=== PATIENT | female | born 1995 | race African-American/Black ===

== ENCOUNTER 2016-11-23 15:03 | Emergency (ER) | payer OTHER ==
[~2016-11-23] VITALS: Ht 167.6 cm; Wt 129.2 kg
[~2016-11-23 15:03] MED LIST: ACET-62 PO; ALBU2.5V2 AEROSOL; ALBU8.5H INH; CLOB15CR5 TOP; DIPH25CA84 PO; DOXE10CA2 PO
[2016-11-23 15:06] VITALS: Ht 167.6 cm; Wt 129.2 kg
--- NOTE | 2016-11-23 15:17 | ERPDOC ---
Departure Disposition Decision Date: Nov 23, 2016 Disposition Decision Time: 16:54 Disposition: 01 DISCHARGED HOME, SELF-CARE Impression Impression Impression: Primary Impression: Tonsillopharyngitis Severity: Moderate Condition: Stable Seen By: Physician only Referrals: NERY DE LEON (PCP/Family) Patient Instructions: Tonsillitis (ED) Problems/Meds/Labs Reviewed?: Yes Medications reviewed and manag: Yes Departure Forms: Return to Work/School Permit Return to Work/School Date: Nov 25, 2016 Follow up care ordered?: Yes Mental Status: Alert, Oriented Scripts Tramadol HCl (Tramadol HCl) 50 Mg Tablet 1-2 TAB PO Q6H Y for PAIN, #20 TAB Prov: DEBBIE FABIAN MD 11/23/16 Amoxicillin (Amoxicillin) 500 Mg Tablet 500 MG PO TID for 10 Days, 0 Refills Prov: DEBBIE FABIAN MD 11/23/16 HPI - EENT General General Chief Complaint: Throat Pain/Injury Stated Complaint: SORE THROAT, EARACHE Time Seen by Provider: 15:17 Source: patient Exam Limitations: no limitations HPI - EENT General Initial Comments Patient is a 21-year-old female presents emergency from for evaluation of sore throat with earache. Patient sore throat started 4 days ago, earache started today patient also has some lateral swelling of her face. Patient was seen in the urgent care and was concern for retropharyngeal abscess so patient was referred to the ER for further evaluation Occurred At: home Onset/Timing: Gradual, Getting worse Duration: other (4 days) Pain/Severity Scale: Now & Worst: 2/10 Location: throat Prearrival Treatment: over the counter meds Associated Symptoms: facial pain/swelling, DENIES: drooling Allergies: Coded Allergies: latex (Unverified Allergy, Unknown, UNKNOWN, 11/23/16) Past History Patient Surgical History right ACL, [place] tooth extraction, laproscopic ovary evaluaton x 2 Past Medical History ENMT: allergies Respiratory: asthma Female: other Integumentary: eczema Psychological: anxiety, personality disorder Surgical History General: other Joint: knee Family History Family PMH: FOUND: a-fib, asthma Vaccines Hx Influenza Vaccination: No Hx Pneumococcal Vaccination: No Social History Does patient use chewing tobac: No Second Hand Exposure: No Substance Use Type: does not use Alcohol Intake: none Marital Status: Single Current Occupational Status: employed, student Occupational Hazard: No Review of Systems Constitutional Constitutional: DENIES: appetite decrease, chills, dizziness, fever, weakness Eyes Vision: DENIES: double vision, loss of visual frederick ENMT Sinuses: DENIES: congestion, rhinorrhea Mouth/Throat: painful swallowing, scratchy throat, sore throat, DENIES: change in swallowing, drooling Cardiovascular Cardiac: DENIES: chest pain Pulmonary Respiratory: DENIES: cough, dyspnea, sputum, tachypnea GI Upper Abdomen: DENIES: nausea, pain, vomiting Lower Abdomen: DENIES: constipation, diarrhea, pain General: DENIES: frequency, urgency Musculoskeletal General: DENIES: cramps, pain, weakness Integumentary Skin: DENIES: color change, itching, rash Endocrine Endocrine: DENIES: heat/cold intolerance Hematologic/Lymphatic Hematologic/Lymphatic: DENIES: anemia Physical Exam General General Nourishment: well nourished, well developed General Body Habitus: well groomed Vitals and Pain Weight: Kilograms: 129.200 Height (feet): 5 Height (inches): 6.00 Triage Pain Scale: RN VS reviewed by Provider: Yes Eyes (brief) Eyes Brief: found: EOMI ENMT (brief) ENMT Brief: FOUND: TM clear, TM good light reflex, mucosa moist, normal dentition, pharnyx erythema (patient has large erythematous left-sided tonsil not quite reaching the midline), NOT FOUND: nasal erythema, nasal exudate, nasal swelling Neck (brief) Neck: NOT FOUND: adenopathy, spasm, tenderness Respiratory (brief) Respiratory: FOUND: clear all frederick, equal bilaterally, NOT FOUND: rales, wheezes Cardiovascular (brief) Cardiac: FOUND: regular rate Differential Diagnoses Considering: Pharyngitis, Other (retropharyngeal abscess, peritonsillar abscess ) Progress Results/Orders Orders Procedure Category Date Status Time Iv Lock (Ed Only) EDM 11/23/16 Transmitted 15:20 Cbc W/Auto LAB 11/23/16 Complete Diff-Reflex Manual 15:20 Bmp - Basic Metabolic LAB 11/23/16 Complete Panel 15:20 LAB 11/23/16 Complete Qualitative, Serum 15:20 Normal Saline (Normal PHA 11/23/16 Complete Saline Iv) 15:30 Dexamethasone Inj PHA 11/23/16 Complete (Decadron) 15:30 Ct Neck W/Contrast CT 11/23/16 Resulted 15:55 Iohexol (Omnipaque) PHA 11/23/16 Complete 16:11 Normal Saline (Ns) PHA 11/23/16 Complete 16:11 Saline Flush (Iv PHA 11/23/16 Complete Flush) 16:11 Lab Results Laboratory Tests Test 11/23/16 15:30 White Blood Count 8.0T/MM3 Red Blood Count 4.26M/MM3 Hemoglobin 12.9GM/DL Hematocrit 38.4% Mean Corpuscular Volume 90.1UM3 Mean Corpuscular Hemoglobin 30.3UUG Mean Corpuscular Hemoglobin Concent 33.6GM/DL RDW Standard Deviation 42.3FL Platelet Count 272T/MM3 Mean Platelet Volume 9.1UM3 Immature Granulocyte % (Auto) 0.1% Neutrophils (%) (Auto) 64.5% Lymphocytes (%) (Auto) 26.3% Monocytes (%) (Auto) 5.5% Eosinophils (%) (Auto) 3.1% Basophils (%) (Auto) 0.5% Absolute Immature Granulocyte (auto 0.01T/MM3 Absolute Neutrophils (auto) 5.2T/MM3 Absolute Lymphocytes (auto) 2.1T/MM3 Absolute Monocytes (auto) 0.4T/MM3 Absolute Eosinophils (auto) 0.3T/MM3 Absolute Basophils (auto) 0.0T/MM3 Turbidity < 20 Sodium Level 144MEQ/L Potassium Level 4.0MEQ/L Chloride Level 108MEQ/L Carbon Dioxide Level 26MEQ/L Anion Gap 10MEQ/L Blood Urea Nitrogen 13.0MG/DL Creatinine 0.8MG/DL Glomerular Filtration Rate Calc 91 BUN/Creatinine Ratio 16RATIO Glucose Level 85MG/DL Calculated Osmolality 276MOSM/KG Calcium Level 8.8MG/DL Icterus Index < 2 Human Chorionic Gonadotropin, Qual Negative Chemistry Specimen Hemolysis < 15 Medications Current ED Medications Sodium Chloride (Normal Saline IV) 1,000 ml @ 999 mls/hr Q1H1M ONCE IV Last administered on 11/23/16 15:33; Start 11/23/16 at 15:30; Stop 11/23/16 at 16:30; Status DC Dexamethasone Sodium Phosphate (Decadron) 8 mg O ONCE IV Last administered on 11/23/16 15:34; Start 11/23/16 at 15:30; Stop 3/8/17 at 15:31; Status DC Iohexol 1 bottle 1 bottle STK-MED ONCE .ROUTE ; Start 11/23/16 at 16:11; Stop 11/23/16 at 16:12; Status DC Sodium Chloride (NS) 100 ml @ As Directed STK-MED ONCE .ROUTE ; Start 11/23/16 at 16:11; Stop 11/23/16 at 16:12; Status DC Sodium Chloride (Iv Flush) 10 ml STK-MED ONCE .ROUTE ; Start 11/23/16 at 16:11; Stop 11/23/16 at 16:12; Status DC Progress Progress Patient given dexamethasone in the emergency department, patient has no signs of retropharyngeal abscess on CT scan. We'll treat with antibiotics, follow-up with primary medical physician CT CT : CT: Other (soft tissue neck) Interpretation: Normal, Faxed Report DEBBIE FABIAN MD Nov 23, 2016 15:17
[2016-11-23] MEDS ORDERED: DEXAMETHASONE 4mg/ml - 1ml INJECTION IV ONE (15:30)
[2016-11-23] MEDS ORDERED: NORMAL SALINE 1,000 ML IV ONE (15:30)
[2016-11-23 15:35] LABS: BASOPHILS % (AUTO) 0.5 % (0-2); EOSINOPHILS # (AUTO) 0.3 T/MM3 (0-0.5); EOSINOPHILS % (AUTO) 3.1 % (0-4); HCT - HEMATOCRIT 38.4 % (36-46); HGB - HEMOGLOBIN 12.9 GM/DL (12-16); IMMATURE GRANULOCYTE # (AUTO) 0.01 T/MM3 (0.00-0.03); IMMATURE GRANULOCYTE % (AUTO) 0.1 % (0.0-0.5); LYMPHOCYTES # (AUTO) 2.1 T/MM3 (1-4.8); LYMPHOCYTES % (AUTO) 26.3 % (23-45); MEAN CORPUSCULAR HGB 30.3 UUG (26-34); MEAN CORPUSCULAR HGB CONC(MCHC 33.6 GM/DL (31-37); MEAN CORPUSCULAR VOLUME 90.1 UM3 (80-100); MEAN PLATELET VOLUME 9.1 UM3 (9.4-12.4); MONOCYTES # (AUTO) 0.4 T/MM3 (0-0.8); MONOCYTES % (AUTO) 5.5 % (0-9.0); NEUTROPHILS #(AUTO)-ABSOLUTE 5.2 T/MM3 (1.8-7.7); NEUTROPHILS % (AUTO) 64.5 % (33-66); RED BLOOD COUNT 4.26 M/MM3 (4.00-5.20)
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
--- OUTSIDE RECORDS SUMMARY | 2016-11-23 15:37 | XMS REPORT | Continuity of Care Document ---
Author Author [facility] Organization [facility] Address Unknown Phone Unavailable Care Team Providers Care Hot Blast Worker Name Role Phone HALEYNERY Primary Care Physician [phone] Insurance Providers Payer Name Policy Number Subscriber Name Relationship Vibha [employer] [id number] Mook Taylor 18 Self Problems Medical Problems Problem Onset Date Status Nausea & vomiting Unknown Active Sinusitis Unknown Active Nausea & vomiting Unknown Active Medications Medication Dose Route Sig Days/Qty Instructions Order Date Discontinued Date Status Cefdinir 1 Cap PO TWICE A DAY 10 Days 05/11/14 Active Social History Social History Problem Response Recorded Date/Time Smoking Status Unknown if ever smoked 05/11/2014 7:57pm Hospital Discharge Instructions No hospital discharge instructions. Plan of Care No plan of care. Functional Status Query Response Date Recorded Physical Hygiene Self May 11, 2014 7:57pm Disabilities None May 11, 2014 7:57pm Devices Used None May 11, 2014 7:57pm Dressing Self May 11, 2014 7:57pm Ambulation Self May 11, 2014 7:57pm Diet Self May 11, 2014 7:57pm Mental Status Alert Oriented May 11, 2014 8:35pm Disabilities None May 11, 2014 7:57pm Devices Used None May 11, 2014 7:57pm Physical Hygiene Self May 11, 2014 7:57pm Dressing Self May 11, 2014 7:57pm Ambulation Self May 11, 2014 7:57pm Diet Self May 11, 2014 7:57pm Allergies, Adverse Reactions, Alerts Allergen Type Severity Reaction Status Last Updated No Known Allergies Active 05/11/14 Immunizations No immunization records. Vital Signs Acute Vital Signs Vital Response Date/Time Temperature (Fahrenheit) 97.2 deg F (96.8 - 99.1) Temperature (Calculated Celsius) 36.58771 degrees C (36.0 - 37.3) Pulse Rate (adult) 96 bpm (60 - 100) Respiratory Rate 20 breaths/min (10 - 20) O2 Sat by Pulse Oximetry 98 % (90 - 100) Blood Pressure 130/64 mm Hg Height 5 ft 6 in Weight 264 lb Body Mass Index 42.0 kg/m^2 Results Test Source Date Result Interp. Ref. Range Comments Alanine Aminotransferase (ALT/SGPT) May 11, 2014 8:17pm 32 U/L N 9- 52 Albumin May 11, 2014 8:17pm 3.8 G/DL N 3.5-5.0 Albumin/Globulin Ratio May 11, 2014 8:17pm 1.4 RATIO N 1.1-2.2 Alkaline Phosphatase May 11, 2014 8:17pm 77 U/L N 70-260 Anion Gap May 11, 2014 8:17pm 10 MEQ/L N 5-15 Aspartate Amino Transf (AST/SGOT) May 11, 2014 8:17pm 25 U/L N 14-36 BUN/Creatinine Ratio May 11, 2014 8:17pm 17 RATIO N 6-26 Basophils # (Auto) May 11, 2014 8:17pm 0.0 T/MM3 N 0-0.2 Basophils (%) (Auto) May 11, 2014 8:17pm 0.5 % N 0-2 Blood Urea Nitrogen May 11, 2014 8:17pm 15.0 MG/DL N 7-17 Calcium Level May 11, 2014 8:17pm 9.0 MG/DL N 8.4-10.2 Calculated Osmolality May 11, 2014 8:17pm 275 MOSM/KG N 261-280 Carbon Dioxide Level May 11, 2014 8:17pm 27 MEQ/L N 22-30 Chloride Level May 11, 2014 8:17pm 106 MEQ/L N 98-107 Creatinine May 11, 2014 8:17pm 0.9 MG/DL N 0.7-1.2 Eosinophils # (Auto) May 11, 2014 8:17pm 0.4 T/MM3 N 0-0.5 Eosinophils (%) (Auto) May 11, 2014 8:17pm 5.4 % H 0-4 Globulin May 11, 2014 8:17pm 2.8 G/DL N 2.4-3.6 Glucose Level May 11, 2014 8:17pm 86 MG/DL N 65-110 Hematocrit May 11, 2014 8:17pm 35.9 % L 36-46 Hemoglobin May 11, 2014 8:17pm 11.8 GM/DL L 12-16 Lymphocytes # (Auto) May 11, 2014 8:17pm 1.6 T/MM3 N 1-4.8 Lymphocytes (%) (Auto) May 11, 2014 8:17pm 23.4 % N 23-45 Mean Corpuscular Hemoglobin May 11, 2014 8:17pm 30.2 UUG N 26-34 Mean Corpuscular Hemoglobin Concent May 11, 2014 8:17pm 32.9 GM/DL N 31-37 Mean Corpuscular Volume May 11, 2014 8:17pm 91.8 UM3 N 80-100 Mean Platelet Volume May 11, 2014 8:17pm 9.0 UM3 L 9.4-12.4 Monocytes # (Auto) May 11, 2014 8:17pm 0.6 T/MM3 N 0-0.8 Monocytes (%) (Auto) May 11, 2014 8:17pm 9.2 % H 0-9.0 Neutrophils # (Auto) May 11, 2014 8:17pm 4.1 T/MM3 N 1.8-7.7 Neutrophils (%) (Auto) May 11, 2014 8:17pm 61.3 % N 33-66 Platelet Count May 11, 2014 8:17pm 315 T/MM3 N 130-400 Potassium Level May 11, 2014 8:17pm 3.9 MEQ/L N 3.6-5 RDW Standard Deviation May 11, 2014 8:17pm 44.2 FL N 36.9-50.2 Red Blood Count May 11, 2014 8:17pm 3.91 M/MM3 L 4.00-5.20 Sodium Level May 11, 2014 8:17pm 143 MEQ/L N 134-144 Total Bilirubin May 11, 2014 8:17pm 0.20 MG/DL N 0.20-1.30 Total Protein May 11, 2014 8:17pm 6.6 G/DL N 6.3-8.2 White Blood Count May 11, 2014 8:17pm 6.7 T/MM3 N 4.5-11.0 Chemistry Specimen Hemolysis May 11, 2014 8:17pm < 15 0-25 0-25: No Hemolysis.26-70: Slight Hemolysis - can falsely elevate K and Urine Protein. 71-285: Moderate Hemolysis - can falsely elevate K, Troponin I, CA 19-9, PTH, CSF GLucose, and Urine Protein, and can falsely decrease Phenytoin. 286-999: Gross Hemolysis - can falsely elevate K, Troponin I, CA 19-9, PTH, CSF Glucose, and Urine Protine, and can falsely decrease Phenytoin. Recommend specimen recollection. Turbidity May 11, 2014 8:17pm < 20 0-20 Glomerular Filtration Rate Calc May 11, 2014 8:17pm 82 - Immature Granulocyte # (Auto) May 11, 2014 8:17pm 0.01 T/MM3 N 0.00- 0.03 Immature Granulocyte % (Auto) May 11, 2014 8:17pm 0.2 % N 0.0-0.5 Icterus Index May 11, 2014 8:17pm < 2 0-7 Procedures No known history of procedures. Encounters Encounter Location Date/Time Departed Emergency Room [facility] 05/11/14 6:46pm Recent Diagnosis
--- OUTSIDE RECORDS SUMMARY | 2016-11-23 15:38 | XMS REPORT | Continuity of Care Document ---
Author Author [facility] Organization [facility] Address Unknown Phone Unavailable Care Team Providers Care Photography Editor Name Role Phone NERY DE LEON Primary Care Physician [phone] Insurance Providers Payer Name Policy Number Subscriber Name Relationship Vibha [employer] [id number] Mook Taylor 18 Self Advance Directives Directive Response Recorded Date/Time Advanced Directives Type None 07/21/14 9:18pm Problems Medical Problems Problem Onset Date Status Nausea & vomiting Unknown Active Sinusitis Unknown Active Nausea & vomiting Unknown Active RUQ abdominal pain Unknown Active Nausea and vomiting Unknown Active RUQ abdominal pain Unknown Active Medications Medication Dose Route Sig Days/Qty Instructions Order Date Discontinued Date Status Albuterol Sulfate 2.5 Mg AEROSOL THREE TIMES A DAY 07/21/14 Active Albuterol Sulfate 2 Puff INH Q4H PRN DYSPEPSIA 07/21/14 Active [spironolactone ] PO DAILY 07/21/14 Active [diclofenac] PO EVERY 4 HOURS PRN PAIN 07/21/14 Active Norgestimate-Ethinyl Estradiol 1 Tab PO DAILY 07/21/14 Active Social History Social History Problem Response Recorded Date/Time Smoking Status Never smoker 07/21/2014 9:39pm Hx Alcohol Use No 07/21/2014 9:39pm Hospital Discharge Instructions No hospital discharge instructions. Plan of Care No plan of care. Functional Status Query Response Date Recorded Physical Hygiene Self July 21, 2014 9:39pm Disabilities Visual July 21, 2014 9:39pm Devices Used Glasses July 21, 2014 9:39pm Dressing Self July 21, 2014 9:39pm Ambulation Self July 21, 2014 9:39pm Diet Self July 21, 2014 9:39pm Mental Status Alert Oriented July 21, 2014 9:39pm Disabilities Visual July 21, 2014 9:39pm Devices Used Glasses July 21, 2014 9:39pm Physical Hygiene Self July 21, 2014 9:39pm Dressing Self July 21, 2014 9:39pm Ambulation Self July 21, 2014 9:39pm Diet Self July 21, 2014 9:39pm Allergies, Adverse Reactions, Alerts Allergen Type Severity Reaction Status Last Updated No Known Allergies Active 07/21/14 Immunizations Name Given Type Hx Influenza Vaccination No Historical Hx Influenza Vaccination No Historical Vital Signs Acute Vital Signs Vital Response Date/Time Temperature (Fahrenheit) 97.3 deg F (96.8 - 99.1) Temperature (Calculated Celsius) 36.43186 degrees C (36.0 - 37.3) Pulse Rate (adult) 68 bpm (60 - 100) Respiratory Rate 18 breaths/min (10 - 20) O2 Sat by Pulse Oximetry 98 % (90 - 100) Blood Pressure 122/77 mm Hg Height 5 ft 6 in Weight 275 lb Body Mass Index 44.0 kg/m^2 Results Test Source Date Result Interp. [...] Has specimen been collected/obtained? Y Urine Specific [place] July 21, 2014 10:30pm 1.020 - Has [...] 21, 2014 10:15pm < 2 0-7 Procedures Procedure Status Date Provider(s) THER/PROPH/DIAG INJ IV PUSH completed 05/11/14 TX/PRO/DX INJ NEW DRUG ADDON completed 05/11/14 HYDRATE IV INFUSION ADD-ON completed 05/11/14 Encounters Encounter Location Date/Time Departed Emergency Room [facility] 07/21/14 7:04pm Departed Emergency Room [facility] 05/11/14 6:46pm Recent Diagnosis
--- OUTSIDE RECORDS SUMMARY | 2016-11-23 15:38 | XMS REPORT | Continuity of Care Document ---
Author Author [facility] Organization [facility] Address Unknown Phone Unavailable Allergies Active Description Code Type Severity Reaction Onset Reported/Identified Relationship to Patient Clinical Status Yes NKDA N/A N/A Yes No Known Drug Allergies No Known Drug Allergies Drug Allergy Unknown MO 04/22/2012 Yes No Known Intolerances No Known Intolerances Drug Allergy Unknown NONE 04/22/2012 Yes No Known Allergies No Known Allergies Drug Allergy Unknown N/A 2015 Medications Problems Procedures Results Test Result Range URINE CULTURE - 04/22/12 23:39 ICA_MICRO Encounters ACCT No. Visit Date/Time Discharge Status Pt. Type Provider Facility Loc./Unit Complaint [id number] 12/07/2013 09:15:00 12/07/2013 23 :59:59 CLS Outpatient
[2016-11-23 15:44] LABS: ANION GAP 10 MEQ/L (5-15); BUN/CREATININE RATIO 16 RATIO (6-26); CALCIUM 8.8 MG/DL (8.4-10.2); CHLORIDE 108 MEQ/L (98-107); CO2 - CARBON DIOXIDE 26 MEQ/L (22-30); CREATININE 0.8 MG/DL (0.7-1.2); GLOMERULAR FILTRATION RATE 91; GLUCOSE 85 MG/DL (65-110); SODIUM 144 MEQ/L (134-144)
--- OUTSIDE RECORDS SUMMARY | 2016-11-23 16:03 | XMS REPORT | Continuity of Care Document ---
Author Author [facility] Organization [facility] Address Unknown Phone Unavailable Care Team Providers Care Certified Adaptive Physical Educator Name Role Phone HALEY NERY Pickard Primary Care Physician [phone] Insurance Providers Payer Name Policy Number Subscriber [...] F (96.8 - 99.1) Temperature (Calculated Celsius) 36.72519 degrees C (36.0 - 37.3) Pulse Rate [...] Has specimen been collected/obtained? Y Urine Specific [place] July 21, 2014 10:30pm 1.020 - Has [...] Encounters Encounter Location Date/Time Departed Emergency Room [facility] 11/06/14 1:29am Recent Diagnosis
--- OUTSIDE RECORDS SUMMARY | 2016-11-23 16:04 | XMS REPORT | Continuity of Care Document ---
Author Author [facility] Organization [facility] Address Unknown Phone Unavailable Care Team Providers Care Foam Charger Name Role Phone NERY DE LEON Primary Care Physician [phone] Insurance Providers Payer Name Policy Number Subscriber Name Relationship [employer] [id number] Mook Taylor 18 Self Advance Directives Directive [...] F (96.8 - 99.1) Temperature (Calculated Celsius) 36.89258 degrees C (36.0 - 37.3) Pulse Rate [...] Has specimen been collected/obtained? Y Urine Specific [place] July 21, 2014 10:30pm 1.020 - Has [...] Encounters Encounter Location Date/Time Departed Emergency Room [facility] 07/21/14 7:04pm Departed Emergency Room [facility] 05/11/14 6:46pm Recent Diagnosis
--- OUTSIDE RECORDS SUMMARY | 2016-11-23 16:04 | XMS REPORT | Continuity of Care Document ---
Author Author [facility] Organization [facility] Address Unknown Phone Unavailable Care Team Providers Care Back Tufter Name Role Phone HALEYNERY Primary Care Physician [phone] Insurance Providers Payer Name Policy Number Subscriber Name Relationship [employer] [id number] Mook Taylor 18 Self Problems Medical Problems [...] F (96.8 - 99.1) Temperature (Calculated Celsius) 36.92332 degrees C (36.0 - 37.3) Pulse Rate [...] Encounters Encounter Location Date/Time Departed Emergency Room [facility] 05/11/14 6:46pm Recent Diagnosis
--- OUTSIDE RECORDS SUMMARY | 2016-11-23 16:05 | XMS REPORT | Continuity of Care Document ---
Author Author [facility] Organization [facility] Address Unknown Phone Unavailable Allergies Active Description [...] Status Pt. Type Provider Facility Loc./Unit Complaint [id number] 12/07/2013 09:15:00 12/07/2013 23 :59:59 [facility] Outpatient
--- NOTE | 2016-11-23 16:08 | NUR ---
REPORT GIVEN TO FLORA TAVAREZ. CARE ASSUMED.
[2016-11-23] MEDS ORDERED: IOHEXOL 300 MG/ML 75ml INJECTION ONE (16:11)
[2016-11-23] MEDS ORDERED: SALINE FLUSH 10ml SYRINGE ONE (16:11)
[2016-11-23] MEDS ORDERED: NORMAL SALINE 100 ML ONE (16:11)
--- NOTE | 2016-11-23 16:18 | NUR ---
TO CT PER CART.
--- NOTE | 2016-11-23 16:38 | NUR ---
BACK FROM CT
--- NOTE | 2016-11-23 16:43 | DI ---
Indication: ITS.REASON: significant tonsillar swelling rule out peritonsillar abscess lef PROCEDURE: CT NECK W/CONTRAST: Encounter: Initial Comparison: None Technique: Axial CT images were performed through the neck with intravenous contrast. Coronal and sagittal two-dimensional reformats Automated Exposure Control and Iterative Reconstruction dose reducing techniques were utilized. Contrast: Omnipaque 300 75 mL Findings: The lung apices are grossly clear. Significant attenuation artifact due to patient body habitus. There is no evidence of a tonsillar abscess. There is mild asymmetric swelling of the left palatine tonsil. The parapharyngeal fat spaces are maintained. Sinus opacification of the left maxillary. There are some presumably reactive lymph nodes in the upper cervical region bilaterally slightly greater on the left. The submandibular and parotid glands appear normal and symmetric. Great vessels appear normal. Impression: Evidence of a left tonsillitis without discrete or drainable abscess. .
--- NOTE | 2016-11-23 16:46 | NUR ---
BR UP TO BR TO VOID. NO DIZZINESS NOTED. AMBULATORY WITHOUT DIFFICULTIES.
--- NOTE | 2016-11-23 16:53 | NUR ---
DR FABIAN IN
[2016-11-23] MEDS ORDERED: TRAM50TA4 PO (16:55)
[2016-11-23] MEDS ORDERED: AMOX500T2 PO (16:55)
[2016-11-23 17:07] VITALS: BP 153/76; PULSE 81; RESP 16; TEMP 98.7; O2SAT 98
--- NOTE | 2016-11-23 17:07 | NUR ---
DISMISSAL INSTRUCTIONS REVIEWED. DISCHARGED AMB
== END 2016-11-23 17:07 | disposition home or self-care (01) ==
LOC: ED 15:03
DX: J03.90 Acute tonsillitis, unspecified (principal); J02.9 Acute pharyngitis, unspecified
CPT/HCPCS: 70491; 80048; 84703; 85025; 96361; 96374; 99284; J1100; J7030; J7050; Q9967

== ENCOUNTER → 2016-12-09 | Outpatient (CLI) | payer OTHER ==
[~2016-12-09] MED LIST changes: -ALBU2.5V2 AEROSOL; +AMOX500T2 PO; -CLOB15CR5 TOP; -DIPH25CA84 PO; +TRAM50TA4 PO
--- NOTE | 2016-12-09 10:26 | DI ---
Indication: ITS.REASON: [id number] INJURY PROCEDURE: MRI KNEE LEFT W/O CONTRAST: Encounter: Initial Comparison: None Technique: Multiplanar multisequence MR imaging of the left knee was performed without contrast. Findings: The lateral meniscus is normal. Medial meniscus is normal. The ACL and PCL are normal. The MCL and lateral collateral ligament complex are normal. The extensor mechanism is normal. Bone marrow signal intensity is normal. No acute fracture. The cartilage of the medial and lateral compartments is maintained. There is a cartilaginous fissure in the median ridge best seen on axial image #20. No joint effusion or Christianson's cyst. Muscular signal intensity is normal. Impression: No meniscal or ligamentous injury. Cartilage fissure in the patella. .
== END ==
LOC: IMA 08:20
PROVIDERS: ATTEND Family Medicine Sports Medicine
DX: M94.8X6 Other specified disorders of cartilage, lower leg (principal); Y93.45 Activity, cheerleading